=== PATIENT | male | born 2000 | race Caucasian/White ===

== ENCOUNTER 2025-02-01 15:36 | Inpatient (IN) | payer MEDICAID ==
[~2025-02-01] VITALS: Ht 188 cm; Wt 106.6 kg
[2025-02-01 16:09] LABS: CALCIUM, TOTAL 9.6 mg/dL (8.8-10.5); CREATININE 0.93 mg/dL (0.60-1.30); GLOMERULAR FILTR. RATE CALC > 60 mL/min (>60); GLUCOSE,RANDOM 83 mg/dL (70-110); SODIUM SERUM 138 mmol/L (136-145); UREA NITROGEN, BLOOD 8 mg/dL (7-18)
[2025-02-01 16:10] LABS: PLATELET COUNT (AUTO) 174 K/uL (150-450); RED BLOOD CELL COUNT(AUTO) 5.17 MIL/uL (4.50-5.90); RED CELL DISTRIBUTION WIDTH 12.3 % (11.5-14.5); WHITE BLOOD COUNT (AUTO) 16.1 K/uL (4.5-11.0)
[2025-02-01 16:19] LABS: TROPONIN I-HIGH SENSITIVITY 20 ng/L (<76)
[2025-02-01 16:30] LABS: COVID AG,FIA SOURCE NASAL SWAB
[2025-02-01 16:51] LABS: SARS-COV2 (COVID) ANTIGEN,FIA Negative (Negative)
[2025-02-01 16:53] LABS: INFLUENZA TYPE A NEGATIVE FOR TYPE A (NEGATIVE); INFLUENZA TYPE B NEGATIVE FOR TYPE B (NEGATIVE)
[2025-02-01] MEDS: KETOROLAC TROMETHAMINE 30 MG/ML VIAL IM ONE (17:26)
[2025-02-01] MEDS: CefTRIAXone 1 GM/DEXTROSE 50 ML IV ONE (19:57)
[2025-02-01] MEDS: SODIUM CHLORIDE 0.9% 1,000 ML IV ONE (19:57)
[2025-02-01 20:19] LABS: LACTIC ACID 2.2 mmol/L (0.4-2.0)
[2025-02-01] MEDS ORDERED: 0.9% SODIUM CHLORIDE 10 ML SYRINGE IVP PRN (20:30)
[2025-02-01] MEDS: AZITHROMYCIN 500 MG/NS 250 ML IV ONE (20:44)
[2025-02-01] MEDS: SODIUM CHLORIDE 0.9% 3,450 ML IV ONE (20:45)
[2025-02-01] MEDS ORDERED: BISACODYL 10 MG RECTAL RECTAL SUPPOSITORY PR PRN (21:30)
[2025-02-01] MEDS ORDERED: ONDANSETRON HCL 4 MG/2 ML VIAL IVP PRN (21:30)
[2025-02-01] MEDS ORDERED: ZOLPIDEM TARTRATE 5 MG TABLET PO PRN (21:30)
[2025-02-01] MEDS ORDERED: ALBUTEROL SULFATE 2.5 MG/0.5 ML NEB SOLUTION NEB PRN (21:30)
[2025-02-01] MEDS ORDERED: MAGNESIUM HYDROXIDE SUSPENSION 30 ML UDCUP PO PRN (21:30)
[2025-02-01] MEDS ORDERED: IPRATROPIUM BROMIDE 0.5 MG/2.5 ML NEB SOLUTION NEB PRN (21:30)
[2025-02-01] MEDS ORDERED: SODIUM CHLORIDE 0.9% 100 ML ONE (21:38)
[2025-02-01] MEDS ORDERED: IOHEXOL 350 MG/ML 100 ML VIAL ONE (21:38)
[2025-02-01 23:06] VITALS: BP 141/70; PULSE 110; RESP 18; TEMP 98.9; O2SAT 98
[2025-02-01 23:34] LABS: APPEARANCE,URINE CLEAR (CLEAR); GLUCOSE, URINE (UA) NEGATIVE (NEGATIVE); LEUKOCYTE ESTERASE ,URINE NEGATIVE (NEGATIVE); NITRATE,URINE NEGATIVE (NEGATIVE); OCCULT BLOOD,URINE NEGATIVE (NEGATIVE); SPECIFIC GRAVITIY, URINE 1.032 (1.003-1.030)
[2025-02-01 23:41] LABS: ALCOHOL, URINE DRUG SCREEN NEGATIVE (NEGATIVE); AMPHET/METH SCREEN,URINE NEGATIVE (NEGATIVE); BARBITURATE SCREEN, URINE NEGATIVE (NEGATIVE); CANNABINOID SCREEN,URINE NEGATIVE (NEGATIVE); COCAINE SCREEN,URINE NEGATIVE (NEGATIVE); METHADONE SCREEN, URINE NEGATIVE (NEGATIVE)
[2025-02-01 23:44] LABS: PH,URINE DRUG SCREEN 6.5 (5.0-8.0)
[2025-02-02] MEDS: HEPARIN SODIUM,PORCINE 5,000 UNITS/ML VIAL SQ SCH
[2025-02-02 03:06] VITALS: BP 120/58; PULSE 92; RESP 18; TEMP 98.5; O2SAT 98
[2025-02-02] MEDS ORDERED: SODIUM CHLORIDE 0.9% 250 ML IV ONE (03:48)
[2025-02-02] MEDS: LEVOFLOXACIN 750 MG/D5% WATER 150 ML IV SCH (04:12)
[2025-02-02 06:30] LABS: PLATELET COUNT (AUTO) 143 K/uL (150-450); RED BLOOD CELL COUNT(AUTO) 4.43 MIL/uL (4.50-5.90); RED CELL DISTRIBUTION WIDTH 12.1 % (11.5-14.5); WHITE BLOOD COUNT (AUTO) 12.9 K/uL (4.5-11.0)
[2025-02-02 06:54] LABS: CALCIUM, TOTAL 8.8 mg/dL (8.8-10.5); CREATININE 0.63 mg/dL (0.60-1.30); GLOMERULAR FILTR. RATE CALC > 60 mL/min (>60); GLUCOSE,RANDOM 111 mg/dL (70-110); SODIUM SERUM 139 mmol/L (136-145); UREA NITROGEN, BLOOD 11 mg/dL (7-18)
[2025-02-02 08:00] VITALS: BP 126/57; PULSE 77; RESP 19; TEMP 98.2; O2SAT 98
[2025-02-02] MEDS: PANTOPRAZOLE SODIUM 40 MG DR TABLET PO SCH (10:28)
[2025-02-02] MEDS: DOCUSATE SODIUM 100 MG CAPSULE PO SCH (10:28)
[2025-02-02 11:06] VITALS: BP_SYST 120; BP_SYST 124; BP_DIAS 62; BP_DIAS 82; PULSE 83; PULSE 95; RESP 18; TEMP 100; O2SAT 100; O2SAT 98
[2025-02-02] MEDS: HYDROCODONE/ACETAMINOPHEN 5-325 MG TABLET PO PRN (12:58)
[2025-02-02 15:54] VITALS: BP 125/58; PULSE 92; RESP 19; TEMP 99; O2SAT 98
[2025-02-02 20:11] VITALS: BP 139/72; PULSE 109; RESP 18; TEMP 101.1; O2SAT 98
[2025-02-02] MEDS: ACETAMINOPHEN 325 MG TABLET PO PRN (20:55)
[2025-02-03 00:29] VITALS: BP 123/61; PULSE 103; RESP 18; TEMP 99.5; O2SAT 98
[2025-02-03 03:39] VITALS: BP 123/59; PULSE 93; RESP 18; TEMP 98.2; O2SAT 98
[2025-02-03 07:07] LABS: PLATELET COUNT (AUTO) 142 K/uL (150-450); RED BLOOD CELL COUNT(AUTO) 4.58 MIL/uL (4.50-5.90); RED CELL DISTRIBUTION WIDTH 12.6 % (11.5-14.5); WHITE BLOOD COUNT (AUTO) 14.6 K/uL (4.5-11.0)
[2025-02-03 07:21] LABS: CALCIUM, TOTAL 9.2 mg/dL (8.8-10.5); CREATININE 0.66 mg/dL (0.60-1.30); GLOMERULAR FILTR. RATE CALC > 60 mL/min (>60); GLUCOSE,RANDOM 110 mg/dL (70-110); SODIUM SERUM 137 mmol/L (136-145); UREA NITROGEN, BLOOD 10 mg/dL (7-18)
[2025-02-03] MEDS: PIPERACILLIN/TAZO 3.375 GM/D5W 50 ML IV SCH (11:57)
[2025-02-03 12:00] VITALS: BP 108/60; PULSE 102; RESP 20; TEMP 99.3; O2SAT 98
[2025-02-03 16:27] VITALS: BP 130/69; PULSE 102; RESP 20; TEMP 100.9; O2SAT 95
[2025-02-03] MEDS: MORPHINE SULFATE 4 MG/ML SYRINGE IVP PRN (16:36)
[2025-02-03 20:40] VITALS: BP 134/65; PULSE 108; RESP 20; TEMP 100; O2SAT 98
[2025-02-04] VITALS (8 sets, daily range): BP systolic 118–144; BP diastolic 62–96; PULSE 94–113; RESP 18–20; TEMP 99–100.6; O2SAT 96–99
[2025-02-04 06:09] LABS: PLATELET COUNT (AUTO) 151 K/uL (150-450); RED BLOOD CELL COUNT(AUTO) 4.54 MIL/uL (4.50-5.90); RED CELL DISTRIBUTION WIDTH 12.3 % (11.5-14.5); WHITE BLOOD COUNT (AUTO) 14.1 K/uL (4.5-11.0)
[2025-02-04 06:23] LABS: CALCIUM, TOTAL 9.2 mg/dL (8.8-10.5); CREATININE 0.85 mg/dL (0.60-1.30); GLOMERULAR FILTR. RATE CALC > 60 mL/min (>60); GLUCOSE,RANDOM 109 mg/dL (70-110); SODIUM SERUM 136 mmol/L (136-145); UREA NITROGEN, BLOOD 11 mg/dL (7-18)
[2025-02-04 16:15] LABS: APPEARANCE,UNSPUN,BODY FLUID CLOUDY (CLEAR); SPECIMENTYPE,BODY FLUID PLEURAL
[2025-02-04 16:16] LABS: APPEARANCE,SPUN,BODY FLUID CLEAR (CLEAR); BASOPHILS,BODY FLUID 0 % (1-5); BODY FLUID RBC 1110.0 /cu. mm.; COLOR,BODY FLUID YELLOW (LT YELLOW); EOSINOPHILS,BF (ANAL) 0 %; LYMPHOCYTES,BODY FLUID 3 %; MONOCYTES,BODY FLUID 10 %; NEUTROPHILS,BODY FLUID 87 %; TOTAL VOLUME,BODY FLUID 225 mL; WBC, BODY FLUID 16355 /cu. mm.
[2025-02-05] VITALS (8 sets, daily range): BP systolic 125–129; BP diastolic 61–74; PULSE 90–107; RESP 18–24; TEMP 98.1–98.8; O2SAT 94–100
[2025-02-05] MEDS ORDERED: SODIUM CHLORIDE 0.9% 250 ML IV ONE (11:12)
[2025-02-05 12:06] LABS: GLUCOSE, BODY FLUID,REF 8.0 mg/dL; TOTAL PROTEIN,BODY FLUID,REF 5.6 g/dL
[2025-02-05 13:07] LABS: LDH,BODY FLUID,REF 2086.0 IU/L
== END 2025-02-05 15:26 | disposition left against medical advice (07) | DRG 137 ==
LOC: EMS 15:36 → EDH 21:28 → 5N 23:19
PROVIDERS: ADMIT Internal Medicine; ATTEND Internal Medicine
PROC: 0W9930Z Drainage of Right Pleural Cavity with Drainage Device, Percutaneous Approach (ICD-10-PCS; principal; 2025-02-04)
DX: J69.0 Pneumonitis due to inhalation of food and vomit (principal); J90 Pleural effusion, not elsewhere classified; E66.9 Obesity, unspecified; Z53.29 Procedure and treatment not carried out because of patient's decision for other reasons; Z20.822 Contact with and (suspected) exposure to COVID-19; R91.8 Other nonspecific abnormal finding of lung field; J98.11 Atelectasis; Z87.891 Personal history of nicotine dependence; Z68.30 Body mass index [BMI] 30.0-30.9, adult
CPT/HCPCS: 32555; 71045; 71275; 74176; 76942; 80048; 80307; 81003; 82042; 82945; 83605; 83615; 84145; 84157; 84484; 85025; 85379; 85610; 87040; 87075; 87205; 87804; 89051; 93005; 94667; 94668; 94760; 96361; 96365; 96367; 99291; J0456; J0696; J1644; J1885; J1956; J2270; J2543; J7030; J7050; 36415-L1; 36415-TC; 87070